=== PATIENT | male | born 1970 | race Caucasian/White ===

== ENCOUNTER 2017-04-25 09:30 | Inpatient (IN) | payer OTHER ==
[2017-04-25 10:29] VITALS: BMI 33.3
--- NOTE | 2017-04-25 12:34 | HP ---
CIWA Score - CIWA Score Nausea/Vomitin-No Nausea/No Vomiting Muscle Tremors: 4-Moderate,w/Arms Extend Anxiety: 3 Agitation: 4-Moderately Restless Paroxysmal Sweats: 3 Orientation: 0-Oriented Tacttile Disturbances: 0-None Auditory Disturbances: 0-None Visual Disturbances: 0-None Headache: 0-None Present CIWA-Ar Total Score: 14 Admission ROS BHS - HPI Chief Complaint: I am here to detox off the klonopin and stay sober. Allergies/Adverse Reactions: Allergies Allergy/AdvReac Type Severity Reaction Status Date / Time No Known Allergies Allergy Verified 04/25/17 11:58 History of Present Illness: pt is a 46yr old male with a history of klonopin dependence seeking detox for treatment. This is my first time in detox in [facility], pt has been in detox in [place] 8yrs ago. Exam Limitations: No Limitations - Ebola screening Have you traveled outside of the country in the last 21 days: No Have you had contact with anyone from an Ebola affected area: No Have you been sick,other than usual withdrawal symptoms: No Do you have a fever: No - Review of Systems Constitutional: Chills, Diaphoresis, Loss of Appetite, Night Sweats, Changes in sleep EENT: reports: Tearing, Nose Congestion Respiratory: reports: No Symptoms reported, Cough Cardiac: reports: No Symptoms Reported GI: reports: Poor Appetite, Poor Fluid Intake : reports: No Symptoms Reported Musculoskeletal: reports: No Symptoms Reported Integumentary: reports: Flushing, Sweating Neuro: reports: Headache, Tingling, Tremors Endocrine: reports: Excessive Sweating, Flushing Hematology: reports: No Symptoms Reported Psychiatric: reports: Judgement Intact, Mood/Affect Appropiate, Orientated x3, Agitated, Anxious Other Systems: Reviewed and Negative Patient History - Patient Medical History Hx Asthma: No Hx Chronic Obstructive Pulmonary Disease (COPD): No Hx Cancer: No Hx Cardiac Disorders: No Hx Congestive Heart Failure: No Hx Hypertension: No Hx Hypercholesterolemia: No Hx Pacemaker: No HX Cerebrovascular Accident: No Hx Seizures: No Hx Dementia: No Hx Diabetes: No Hx Gastrointestinal Disorders: No Hx Liver Disease: No Hx Genitourinary Disorders: No Hx Sexually Transmitted Disorders: No Hx Renal Disease (ESRD): No Hx Thyroid Disease: No Hx Human Immunodeficiency Virus (HIV): No (negative) Hx Hepatitis C: No (negatiave) Hx Depression: No Hx Suicide Attempt: No (denies) Hx Bipolar Disorder: No Hx Schizophrenia: No - Patient Surgical History Past Surgical History: No Hx Neurologic Surgery: No Hx Cataract Extraction: No Hx Cardiac Surgery: No Hx Lung Surgery: No Hx Breast Surgery: No Hx Breast Biopsy: No Hx Abdominal Surgery: No Hx Appendectomy: No Hx Cholecystectomy: No Hx Genitourinary Surgery: No Hx Section: No Hx Orthopedic Surgery: No Anesthesia Reaction: No - PPD History Previous Implant?: Yes Documented Results: Negative w/o proof Implanted On Prior R Admission?: No PPD to be Administered?: Yes - Reproductive History Patient is a Female of Child Bearing Age (11 -55 yrs old): No - Smoking Cessation Smoking history: Current every day smoker Have you smoked in the past 12 months: Yes Aproximately how many cigarettes per day: 3 Hx Chewing Tobacco Use: No Initiated information on smoking cessation: Yes 'Breaking Loose' booklet given: 04/25/17 - Substance & Tx. History Hx Alcohol Use: No Hx Substance Use: Yes Substance Use Type: Tranquilizers Hx Substance Use Treatment: Yes ([place] 8yrs ago.) - Substances Abused Klonopin Route: Oral Frequency: Daily Amount used: 8 mg. Age of first use: 44 Date of Last Use: 04/25/17 Family Disease History - Family Disease History Family History: Denies Admission Physical Exam BHS - Vital Signs Vital Signs: Vital Signs - 24 hr 04/25/17 10:26 Temperature 96.8 F L Pulse Rate 90 Respiratory 18 Rate Blood Pressure 131/90 - Physical General Appearance: Yes: Appropriately Dressed, Moderate Distress, Tremorous, Irritable, Sweating, Anxious HEENTM: Yes: Normal Voice, Nasal Congestion, Rhinorrhea Respiratory: Yes: Lungs Clear, Normal Breath Sounds, No Respiratory Distress Neck: Yes: No masses,lesions,Nodules Breast: Yes: Within Normal Limits Cardiology: Yes: Regular Rhythm, Regular Rate, S1, S2 Abdominal: Yes: Normal Bowel Sounds, Non Tender, Soft Genitourinary: Yes: Within Normal Limits Back: Yes: Normal Inspection Musculoskeletal: Yes: full range of Motion Extremities: Yes: Normal Capillary Refill, Normal Inspection, Tremors Neurological: Yes: Fully Oriented, Alert, Normal Response Integumentary: Yes: Normal Color, Diaphoresis Lymphatic: Yes: Within Normal Limits - Diagnostic (1) Sedative, hypnotic or anxiolytic dependence with withdrawal, uncomplicated Current Visit: Yes Status: Chronic (2) Nicotine dependence Current Visit: Yes Status: Chronic Qualifiers: Nicotine product type: cigarettes Substance use status: uncomplicated Qualified Code(s): F17.210 - Nicotine dependence, cigarettes, uncomplicated (3) Methadone maintenance therapy patient Current Visit: Yes Status: Chronic Comment: pt receives 230mg last dose today. dose has been verified with [facility] mmtp with SHIKHA Garcia and PARRIS Peter Cleared for Admission S - Detox or Rehab [facility] Level of Care: Medically Managed Detox Regimen/Protocol: Valium [facility] Breath Alcohol Content Breath Alcohol Content: 0 Urine Drug Screen - Results Drug Screen Negative: No Urine Drug Screen Results: BZO-Benzodiazepines, MTD-Methadone
[2017-04-25] MEDS ORDERED: MAGNESIUM HYDROX 2400MG/30ML ORAL SUSPENSION 30 ML CUP PO PRN (12:41)
[2017-04-25] MEDS ORDERED: MAGNESIUM CITRATE 300 ML BOTTLE PO PRN (12:41)
[2017-04-25] MEDS ORDERED: ACETAMINOPHEN 325 MG TABLET (FP) PO PRN (12:41)
[2017-04-25] MEDS ORDERED: guaiFENesin/D-METHORPHAN HB 10 ML UNIT-DOSE CUPS PO PRN (12:41)
[2017-04-25] MEDS ORDERED: NICOTINE POLACRILEX 2 MG GUM BC PRN (12:41)
[2017-04-25] MEDS ORDERED: LOPERAMIDE HCL 2 MG CAPSULE PO PRN (12:41)
[2017-04-25] MEDS ORDERED: MAG HYDROX/AL HYDROX/SIMETH 30 ML UNIT-DOSE CUP PO PRN (12:41)
[2017-04-25] MEDS ORDERED: IBUPROFEN 400 MG TABLET (FP) PO PRN (12:41)
[2017-04-25] MEDS ORDERED: hydrOXYzine PAMOATE 50 MG CAPSULE (FP) PO PRN (12:41)
[2017-04-25] MEDS ORDERED: P-EPHED 60MG/TRIPROLIDI 2.5MG TABLET PO PRN (12:41)
[2017-04-25] MEDS ORDERED: MENTHOL/PHENOL 1 EACH UD MM PRN (12:41)
[2017-04-25] MEDS ORDERED: diazePAM 5 MG TABLET PO ONE (12:59)
[2017-04-25] MEDS: diazePAM 5 MG TABLET PO SCH ×2 (13:39→22:08)
[2017-04-25 17:20] LABS: URINE APPEARANCE CLEAR; URINE BILIRUBIN NEGATIVE (NEGATIVE); URINE BLOOD NEGATIVE (NEGATIVE); URINE COLOR DKYELLOW; URINE GLUCOSE (UA) NEGATIVE (NEGATIVE); URINE KETONE NEGATIVE (NEGATIVE); URINE LEUK ESTERASE 1+ (NEGATIVE); URINE NITRITE NEGATIVE (NEGATIVE); URINE PROTEIN NEGATIVE (NEGATIVE); URINE UROBILINOGEN NEGATIVE E.U./dl (0.2-1.0)
[2017-04-25 17:41] LABS: URINE MUCUS MANY; URINE RBC <1 /hpf (0-3); URINE WBC 7 /hpf (3-5)
[2017-04-25] MEDS: THIAMINE HCL 100 MG TABLET (FP) PO SCH (22:08)
[2017-04-25] MEDS: diphenhydrAMINE HCL 50 MG CAPSULE PO PRN (22:08)
[2017-04-26] MEDS ORDERED: METHADONE HCL 10 MG TABLET ONE (05:21)
[2017-04-26] MEDS ORDERED: METHADONE HCL 40 MG DISPERSABLE TABLET ONE (05:21)
[2017-04-26] MEDS: METHADONE 200 MG, METHADONE 30 MG PO SCH (05:37)
[2017-04-26] MEDS: diazePAM 5 MG TABLET PO SCH ×3 (05:38→22:05)
[2017-04-26] MEDS ORDERED: METHADONE HCL 10 MG TABLET PO SCH (06:00)
[2017-04-26 09:53] LABS: MCH 31.7 pg (25.7-33.7); MCHC 32.8 g/dl (32.0-35.9); MEAN CELL VOLUME 96.7 fl (80-96); MEAN PLT VOLUME 8.7 fl (7.5-11.1); PLATELET COUNT 236 K/MM3 (134-434); RDW 14.1 % (11.9-15.9); WHITE BLOOD COUNT 7.5 K/mm3 (4.0-10.0)
--- NOTE | 2017-04-26 09:55 | PN ---
[facility] CIWA - CIWA Score Nausea/Vomitin-No Nausea/No Vomiting Muscle Tremors: 4-Moderate,w/Arms Extend Anxiety: 4-Mod. Anxious/Guarded Agitation: 4-Moderately Restless Paroxysmal Sweats: 1-Minimal Palms Moist Orientation: 0-Oriented Tacttile Disturbances: 3-Moderate Itch/Numb/Burn Auditory Disturbances: 0-None Visual Disturbances: 0-None Headache: 0-None Present CIWA-Ar Total Score: 16 BHS Progress Note (SOAP) Subjective: ANXIETY,SWEATS,INTERMITTENT SLEEP. Objective: 04/26/17 09:54 Vital Signs Temperature 96.7 F L 04/26/17 09:42 Pulse Rate 77 04/26/17 09:42 Respiratory Rate 18 04/26/17 09:42 Blood Pressure 126/82 04/26/17 09:42 O2 Sat by Pulse Oximetry (%) Laboratory Last Values Urine Color Dkyellow 04/25/17 14:15 Urine Appearance Clear 04/25/17 14:15 Urine pH 5.0 (5.0-8.0) 04/25/17 14:15 Ur Specific [place] >= 1.030 (1.005-1.025) H 04/25/17 14:15 Urine Protein Negative (NEGATIVE) 04/25/17 14:15 Urine Glucose (UA) Negative (NEGATIVE) 04/25/17 14:15 Urine Ketones Negative (NEGATIVE) 04/25/17 14:15 Urine Blood Negative (NEGATIVE) 04/25/17 14:15 Urine Nitrite Negative (NEGATIVE) 04/25/17 14:15 Urine Bilirubin Negative (NEGATIVE) 04/25/17 14:15 Urine Urobilinogen Negative E.U./dl (0.2-1.0) 04/25/17 14:15 Ur Leukocyte Esterase 1+ (NEGATIVE) H 04/25/17 14:15 Urine RBC <1 /hpf (0-3) 04/25/17 14:15 Urine WBC 7 /hpf (3-5) 04/25/17 14:15 Ur Epithelial Cells Rare /hpf (FEW) 04/25/17 14:15 Urine Mucus Many 04/25/17 14:15 UA NOTED Assessment: 04/26/17 09:55 WITHDRAWAL SX Plan: CONTINUE DETOX REPEAT UA
[2017-04-26] MEDS: PRENATAL VITAMINS W/ FOLIC ACID TABLET (FP) PO SCH (10:11)
[2017-04-26] MEDS: NICOTINE 7 MG/24 HOURS TOPICAL PATCH TD SCH (10:11)
[2017-04-26 10:35] LABS: ALBUMIN 3.9 g/dl (3.4-5.0); ANION GAP 8 (8-16); BILIRUBIN,TOTAL 0.6 mg/dL (0.2-1.0); CO2 29 mmol/L (21-32); COCKROFT - GAULT 127.47; GLUCOSE,RANDOM 86 mg/dL (74-106); SGOT/AST 30 U/L (15-37); SGPT/ALT 39 U/L (12-78)
[2017-04-26 10:37] LABS: ALK PHOS 68 U/L (45-117); CALCIUM 9.6 mg/dL (8.5-10.1); TOT PROT 7.7 g/dl (6.4-8.2)
--- NOTE | 2017-04-26 12:49 | EKG ---
Test Reason : Blood Pressure : / mmHG Vent. Rate : 076 BPM Atrial Rate : 076 BPM P-R Int : 152 ms QRS Dur : 080 ms QT Int : 376 ms P-R-T Axes : 068 078 057 degrees QTc Int : 423 ms NORMAL SINUS RHYTHM NORMAL ECG NO PREVIOUS ECGS AVAILABLE Confirmed by GABY BAGLEY, EROS ([id number]) on 04/26/2017 12:48:28 PM Referred By: Confirmed By:EROS GRIFFIN MD
[2017-04-26 17:49] LABS: URINE APPEARANCE CLEAR; URINE BILIRUBIN NEGATIVE (NEGATIVE); URINE BLOOD NEGATIVE (NEGATIVE); URINE COLOR LTYELLOW; URINE GLUCOSE (UA) NEGATIVE (NEGATIVE); URINE KETONE NEGATIVE (NEGATIVE); URINE NITRITE NEGATIVE (NEGATIVE); URINE PROTEIN NEGATIVE (NEGATIVE); URINE UROBILINOGEN NEGATIVE E.U./dl (0.2-1.0)
[2017-04-26 17:51] LABS: URINE LEUK ESTERASE TRACE (NEGATIVE)
[2017-04-26 17:55] LABS: URINE RBC <1 /hpf (0-3); URINE WBC 1 /hpf (3-5)
[2017-04-26] MEDS: THIAMINE HCL 100 MG TABLET (FP) PO SCH (22:05)
[2017-04-26] MEDS: diphenhydrAMINE HCL 50 MG CAPSULE PO PRN (22:05)
[2017-04-27] MEDS ORDERED: METHADONE HCL 10 MG TABLET ONE (03:32)
[2017-04-27] MEDS ORDERED: METHADONE HCL 40 MG DISPERSABLE TABLET ONE (03:33)
[2017-04-27] MEDS: diazePAM 5 MG TABLET PO PRN (05:32)
[2017-04-27] MEDS: METHADONE 200 MG, METHADONE 30 MG PO SCH (05:33)
[2017-04-27] MEDS: diazePAM 5 MG TABLET PO SCH ×2 (10:07→22:06)
[2017-04-27] MEDS: PRENATAL VITAMINS W/ FOLIC ACID TABLET (FP) PO SCH (10:07)
[2017-04-27] MEDS: NICOTINE 7 MG/24 HOURS TOPICAL PATCH TD SCH (10:08)
--- NOTE | 2017-04-27 11:35 | PN ---
S CIWA - CIWA Score Nausea/Vomitin-No Nausea/No Vomiting Muscle Tremors: 4-Moderate,w/Arms Extend Anxiety: 4-Mod. Anxious/Guarded Agitation: 4-Moderately Restless Paroxysmal Sweats: 1-Minimal Palms Moist Orientation: 0-Oriented Tacttile Disturbances: 3-Moderate Itch/Numb/Burn Auditory Disturbances: 0-None Visual Disturbances: 0-None Headache: 0-None Present CIWA-Ar Total Score: 16 BHS Progress Note (SOAP) Subjective: ANXIETY, SWEATS, RESPONSE TO MEDS WITH SOME EFFECTIVENESS. Objective: 04/27/17 11:33 Vital Signs Temperature 97.5 F L 04/27/17 09:07 Pulse Rate 108 H 04/27/17 09:07 Respiratory Rate 20 04/27/17 09:07 Blood Pressure 131/84 04/27/17 09:07 O2 Sat by Pulse Oximetry (%) Assessment: 04/27/17 11:33 WITHDRAWAL SX Plan: CONTINUE DETOX
[2017-04-27] MEDS: THIAMINE HCL 100 MG TABLET (FP) PO SCH (22:06)
[2017-04-27] MEDS ORDERED: INSULIN (NOVOLOG) ASPART 100 UNITS/ML 10ML VIAL ONE (22:16)
[2017-04-28] MEDS ORDERED: METHADONE HCL 10 MG TABLET ONE (03:12)
[2017-04-28] MEDS ORDERED: METHADONE HCL 40 MG DISPERSABLE TABLET ONE (03:13)
[2017-04-28] MEDS: METHADONE 200 MG, METHADONE 30 MG PO SCH (05:34)
[2017-04-28] MEDS: diazePAM 5 MG TABLET PO PRN (05:34)
[2017-04-28] MEDS: diazePAM 5 MG TABLET PO SCH ×2 (09:52→22:06)
[2017-04-28] MEDS: NICOTINE 7 MG/24 HOURS TOPICAL PATCH TD SCH (09:52)
[2017-04-28] MEDS: PRENATAL VITAMINS W/ FOLIC ACID TABLET (FP) PO SCH (09:52)
--- NOTE | 2017-04-28 10:21 | PN ---
BHS Progress Note (SOAP) Subjective: ANXIETY,FATIGUE,SWEATS. Objective: 04/28/17 10:20 Vital Signs Temperature 98.2 F 04/28/17 09:49 Pulse Rate 104 H 04/28/17 09:49 Respiratory Rate 18 04/28/17 09:49 Blood Pressure 127/84 04/28/17 09:49 O2 Sat by Pulse Oximetry (%) Assessment: 04/28/17 10:21 WITHDRAWAL SX Plan: CONTINUE DETOX
[2017-04-28] MEDS: THIAMINE HCL 100 MG TABLET (FP) PO SCH (22:06)
[2017-04-28 22:16] VITALS: PULSE 87
[2017-04-29] MEDS ORDERED: METHADONE HCL 10 MG TABLET ONE (02:18)
[2017-04-29] MEDS ORDERED: METHADONE HCL 40 MG DISPERSABLE TABLET ONE (02:19)
[2017-04-29] MEDS: METHADONE 200 MG, METHADONE 30 MG PO SCH (05:27)
[2017-04-29 06:33] VITALS: BP 121/85; TEMP 98.3
[2017-04-29] MEDS ORDERED: diazePAM 5 MG TABLET PO SCH (10:00)
--- NOTE | 2017-04-29 14:57 | DS ---
[facility] Detox Discharge Summary Admission Date: 04/25/17 Discharge Date: 04/29/17 - History Present History: Sedative Dependence, MMTP Additional Comments: ADVISED PATIENT TO FOLLOW-UP WITH TELEPHONE OPERATOR CHIEF AFTER DISCHARGE FROM DETOX FOR GENERAL MEDICAL ASSESSMENT. - Physical Exam Results Vital Signs: Vital Signs Temperature 98.3 F 04/29/17 06:32 Pulse Rate 87 04/29/17 06:32 Respiratory Rate 18 04/29/17 06:32 Blood Pressure 121/85 04/29/17 06:32 O2 Sat by Pulse Oximetry (%) Pertinent Admission Physical Exam Findings: WITHDRAWAL SYMPTOMS. Laboratory Tests 04/25/17 04/26/17 04/26/17 14:15 06:00 06:00 WBC 7.5 RBC 4.36 Hgb 13.8 Hct 42.2 MCV 96.7 H MCHC 32.8 RDW 14.1 Plt Count 236 MPV 8.7 Sodium 141 Potassium 4.4 Chloride 104 Carbon Dioxide 29 Anion Gap 8 BUN 14 Creatinine 1.0 Creat Clearance w eGFR > 60 Random Glucose 86 Calcium 9.6 Total Bilirubin 0.6 AST 30 ALT 39 Alkaline Phosphatase 68 Total Protein 7.7 Albumin 3.9 Urine Color Dkyellow Urine Appearance Clear Urine pH 5.0 Ur Specific [place] >= 1.030 H Urine Protein Negative Urine Glucose (UA) Negative Urine Ketones Negative Urine Blood Negative Urine Nitrite Negative Urine Bilirubin Negative Urine Urobilinogen Negative Ur Leukocyte Esterase 1+ H Urine RBC <1 Urine WBC 7 Ur Epithelial Cells Rare Urine Mucus Many RPR Titer 04/26/17 04/26/17 06:00 17:32 WBC RBC Hgb Hct MCV MCHC RDW Plt Count MPV Sodium Potassium Chloride Carbon Dioxide Anion Gap BUN Creatinine Creat Clearance w eGFR Random Glucose Calcium Total Bilirubin AST ALT Alkaline Phosphatase Total Protein Albumin Urine Color Ltyellow Urine Appearance Clear Urine pH 7.0 D Ur Specific [place] 1.025 Urine Protein Negative Urine Glucose (UA) Negative Urine Ketones Negative Urine Blood Negative Urine Nitrite Negative Urine Bilirubin Negative Urine Urobilinogen Negative Ur Leukocyte Esterase Trace H Urine RBC <1 Urine WBC 1 Ur Epithelial Cells Rare Urine Mucus RPR Titer Nonreactive LABS NOTED. - Treatment Hospital Course: Detox Protocol Followed, Detoxed Safely, Responded well, Discharged Condition Good Patient has Accepted a Rehab Referral to: PT. ELECTING TO GO HOME. 12-STEP / NA OUTPATIENT PROGRAMS RECOMMENDED. - Medication Discharge Medications: Ambulatory Orders NK [No Known Home Medication] 04/25/17 - Diagnosis (1) Methadone maintenance therapy patient Status: Chronic (2) Nicotine dependence Status: Chronic Qualifiers: Nicotine product type: cigarettes Substance use status: uncomplicated Qualified Code(s): F17.210 - Nicotine dependence, cigarettes, uncomplicated (3) Sedative, hypnotic or anxiolytic dependence with withdrawal, uncomplicated Status: Acute - AMA Did Patient Leave Against Medical Advice: No
== END 2017-04-29 08:39 | disposition home or self-care (01) | DRG 773 ==
LOC: YASAS 09:30 → Y3N 12:58
PROVIDERS: ADMIT Internal Medicine; ATTEND Internal Medicine
PROC: HZ2ZZZZ Detoxification Services for Substance Abuse Treatment (ICD-10-PCS; principal; 2017-04-25)
DX: F13.230 Sedative, hypnotic or anxiolytic dependence with withdrawal, uncomplicated (principal); F11.20 Opioid dependence, uncomplicated; F17.210 Nicotine dependence, cigarettes, uncomplicated
CPT/HCPCS: 36415; 80053; 81003; 81015; 85027; 86593; 93005; 93010